=== PATIENT | male | born 1975 ===

== ENCOUNTER 2017-02-24 07:35 | Emergency (ER) | payer MEDICAID ==
--- NOTE | 2017-02-24 07:51 | ED PDOC ---
HPI: Abdomen Time Seen by Provider: 02/24/17 07:39 Chief Complaint (Nursing): Abdominal Pain Chief Complaint (Provider): Abdominal Pain History Per: Patient History/Exam Limitations: no limitations Onset/Duration Of Symptoms: Days (x1) Current Symptoms Are (Timing): Still Present Additional Complaint(s): Db Grimm is a 41 year old male with no significant past medical history , who presents to the ED complaining of left flank and LLQ pain with associated nausea since this morning. Patient denies vomiting, diarrhea, and urinary symptoms. PMD: Provider TBD Past Medical History Reviewed: Historical Data, Nursing Documentation, Vital Signs Vital Signs: Last Vital Signs Temp 97.1 F L 02/24/17 10:28 Pulse 72 02/24/17 10:28 Resp 16 02/24/17 10:28 BP 142/88 02/24/17 10:28 Pulse Ox 99 02/24/17 10:28 - Family History Family History: States: Unknown Family Hx - Home Medications Home Medications: Ambulatory Orders Medication Instructions Recorded Ciprofloxacin HCl [Cipro] 500 mg PO BID #20 tab 02/24/17 Tamsulosin [Flomax] 0.4 mg PO DAILY #5 cap 02/24/17 traMADol [Ultram] 50 mg PO Q8 #10 tab 02/24/17 - Allergies Allergies/Adverse Reactions: Allergies Allergy/AdvReac Type Severity Reaction Status Date / Time oxycodone [From Percocet] Allergy Mild ITCHING Verified 02/24/17 10:04 acetaminophen [From Percocet] Allergy ITCHING Verified 02/24/17 10:04 Review of Systems ROS Statement: Except As Marked, All Systems Reviewed And Found Negative Gastrointestinal: Positive for: Nausea, Abdominal Pain (LLQ, left flank). Negative for: Vomiting, Diarrhea Genitourinary Male: Negative for: Dysuria, Frequency, Incontinence Physical Exam - Reviewed Nursing Documentation Reviewed: Yes - Physical Exam Appears: Positive for: Non-toxic, No Acute Distress Head Exam: Positive for: ATRAUMATIC Skin: Positive for: Normal Color, Warm Eye Exam: Positive for: Normal appearance Gastrointestinal/Abdominal: Positive for: Normal Exam, Soft. Negative for: Tenderness Back: Positive for: Normal Inspection. Negative for: L CVA Tenderness, R CVA Tenderness Neurologic/Psych: Positive for: Alert, Oriented (x3) - Laboratory Results Result Diagrams: 02/24/17 10:01 02/24/17 10:01 Medical Decision Making Medical Decision Making: Time: 746 Initial Impression: Rule out kidney stones Plan: --CT Abd and pelvis w/o contrast --ED Urine dipstick --Toradol 30 mg IVP --Urine Culture --Reevaluation Time: 826 --Sodium Chloride 0.9% 1,000 ml IV --Ultram 50 mg PO --Reevaluation Time: 852 --Lidocaine 90 IV --Reevaluation Time: 899 --Morphine 2 mg IV --Reevaluation Time: 954 CT Abd and Pelvis FINDINGS: LOWER THORAX: Unremarkable. LIVER: Unremarkable. No gross lesion or ductal dilatation. GALLBLADDER AND BILE DUCTS: Unremarkable. PANCREAS: Unremarkable. No gross lesion or ductal dilatation. SPLEEN: Unremarkable. ADRENALS: Unremarkable. No mass. KIDNEYS AND URETERS: Obstructive mid left ureteral 4 millimeter calculus causing mild hydroureteronephrosis. Punctate nonobstructive bilateral renal calculi. No solid mass. VASCULATURE: Unremarkable. No aortic aneurysm. BOWEL: Unremarkable. No obstruction. No gross mural thickening. APPENDIX: Prominent, fluid-filled appendix, measuring up to 8 millimeter, without wall thickening or obvious periappendiceal inflammatory change. PERITONEUM: Small fat containing umbilical hernia. No free fluid. No free air. LYMPH NODES: Unremarkable. No enlarged lymph nodes. BLADDER: Unremarkable. REPRODUCTIVE: Unremarkable. BONES: No acute fracture. OTHER FINDINGS: None. IMPRESSION: Obstructive mid left ureteral 4 millimeter calculus causing mild hydroureteronephrosis. Prominent fluid-filled appendix, measuring up to 8 millimeter, without wall thickening or obvious periappendiceal inflammatory change. Prominent size may represent a normal variant. Acute appendicitis should be considered in the appropriate clinical setting. Clinical correlation is recommended. Scribe Attestation: Documented by Ralf Raymond acting as a scribe for Juan Knott MD. MD Haynes Attestation: All medical record entries made by the Ivy were at my direction and personally dictated by me. I have reviewed the chart and agree that the record accurately reflects my personal performance of the history, physical exam, medical decision making, and the department course for this patient. I have also personally directed, reviewed, and agree with the discharge instructions and disposition. Disposition - Clinical Impression Clinical Impression: Kidney stone - Patient ED Disposition Is Patient to be Admitted: No Counseled Patient/Family Regarding: Studies Performed, Diagnosis, Need For Followup, Rx Given - Disposition Referrals: Braydon Rocha MD [Staff Provider] - Disposition: Routine/Home Disposition Time: 10:45 Condition: GOOD Prescriptions: Ciprofloxacin HCl [Cipro] 500 mg PO BID #20 tab Tamsulosin [Flomax] 0.4 mg PO DAILY #5 cap traMADol [Ultram] 50 mg PO Q8 #10 tab Instructions: Kidney Stones (ED) Forms: [employer] (Tristanian)
[2017-02-24 08:05] VITALS: RESP 16
[2017-02-24] MEDS: Sodium Chloride 0.9% 1,000 ML IV STA (08:31)
[2017-02-24] MEDS ORDERED: SODIUM CHLORIDE 0.9% IV ONE (08:51)
[2017-02-24] MEDS ORDERED: LIDOCAINE IV ONE (08:51)
--- NOTE | 2017-02-24 09:57 | CT ---
PROCEDURE: CT Abdomen and Pelvis without intravenous contrast HISTORY: r/o kidney stone COMPARISON: None. TECHNIQUE: Contiguous images were obtained from the domes of the diaphragms to the upper thighs without the administration of intravenous contrast. Oral contrast was not administered. Radiation dose: Total exam DLP = 343.7 mGy-cm. This CT exam was performed using one or more of the following dose reduction techniques: Automated exposure control, adjustment of the mA and/or kV according to patient size, and/or use of iterative reconstruction technique. FINDINGS: LOWER THORAX: Unremarkable. LIVER: Unremarkable. No gross lesion or ductal dilatation. GALLBLADDER AND BILE DUCTS: Unremarkable. PANCREAS: Unremarkable. No gross lesion or ductal dilatation. SPLEEN: Unremarkable. ADRENALS: Unremarkable. No mass. KIDNEYS AND URETERS: Obstructive mid left ureteral 4 millimeter calculus causing mild hydroureteronephrosis. Punctate nonobstructive bilateral renal calculi. No solid mass. VASCULATURE: Unremarkable. No aortic aneurysm. BOWEL: Unremarkable. No obstruction. No gross mural thickening. APPENDIX: Prominent, fluid-filled appendix, measuring up to 8 millimeter, without wall thickening or obvious periappendiceal inflammatory change. PERITONEUM: Small fat containing umbilical hernia. No free fluid. No free air. LYMPH NODES: Unremarkable. No enlarged lymph nodes. BLADDER: Unremarkable. REPRODUCTIVE: Unremarkable. BONES: No acute fracture. OTHER FINDINGS: None. IMPRESSION: Obstructive mid left ureteral 4 millimeter calculus causing mild hydroureteronephrosis. Prominent fluid-filled appendix, measuring up to 8 millimeter, without wall thickening or obvious periappendiceal inflammatory change. Prominent size may represent a normal variant. Acute appendicitis should be considered in the appropriate clinical setting. Clinical correlation is recommended. Findings conveyed to Dr. Knott by Dr. Crowell at 9:54 a.m. on 02/24/2017.
[2017-02-24 10:04] LABS: BASO % 0.5 % (0.0-2.0); EOS # 0.2 K/uL (0.0-0.7); EOS % 2.3 % (0.0-4.0); HEMATOCRIT 42.8 % (35.0-51.0); LYMPH # 3.6 K/uL (1.0-4.3); LYMPH % 54.4 % (20.0-40.0); MEAN CELL VOLUME 88.4 fl (80.0-94.0); MEAN CORPUSCULAR HEMOGLOBIN 28.7 pg (27.0-31.0); MEAN CORPUSCULAR HGB CONC 32.4 g/dL (33.0-37.0); MEAN PLATELET VOLUME 9.6 fl (7.2-11.7); MONO # 0.6 K/uL (0.0-0.8); MONO % 8.6 % (0.0-10.0); NEUT # 2.3 K/uL (1.8-7.0); NEUT % 34.2 % (50.0-75.0); NRBC % 0.2 % (0.0-0.0); RED CELL DISTRIBUTION WIDTH 13.8 % (11.5-14.5); WHITE BLOOD COUNT 6.6 K/uL (4.8-10.8)
[2017-02-24 10:15] LABS: BILIRUBIN,TOTAL 0.5 mg/dl (0.2-1.3); CALCIUM 8.9 mg/dL (8.4-10.2); CARBON DIOXIDE 26 mmol/L (22-30); CHLORIDE 106 mmol/L (98-107); GFR AFRICAN-AMERICAN > 60; GLUCOSE,RANDOM 98 mg/dL (75-110); SODIUM 141 mmol/l (132-148)
[2017-02-24 10:21] LABS: ALB/GLOB RATIO 1.3 (1.0-2.1); ALKALINE PHOSPHATASE 89 U/L (38-126); ALT/SGPT 35 U/L (21-72); AST/SGOT 40 U/L (17-59); BLOOD UREA NITROGEN 7 mg/dl (9-20); POTASSIUM 4.6 MMOL/L (3.6-5.0)
[2017-02-24 10:31] VITALS: BP 142/88; PULSE 72; TEMP 97.1; O2SAT 99
== END 2017-02-24 10:33 | disposition home or self-care (01) ==
LOC: H.ER 07:35
DX: N13.2 Hydronephrosis with renal and ureteral calculous obstruction (principal)
CPT/HCPCS: 74176; 80053; 85025; 96374; 96375; 99282; J1885; J2270; J7040

== ENCOUNTER 2017-06-08 10:34 | Emergency (ER) | payer MEDICAID, OTHER ==
[2017-06-08 11:14] VITALS: BP 135/91; PULSE 65; RESP 18; TEMP 97.7; O2SAT 100
[2017-06-08 12:15] LABS: SQUAMOUS EPITHIAL < 1 /hpf (0-5); URINE BILIRUBIN NEGATIVE (NEGATIVE); URINE BLOOD SMALL (NEGATIVE); URINE CLARITY CLEAR (Clear); URINE COLOR STRAW (YELLOW); URINE GLUCOSE (UA) NEG (Normal); URINE LEUKOCYTE ESTERASE NEG Leu/uL (Negative); URINE PROTEIN NEGATIVE (NEGATIVE); URINE UROBILINOGEN 0.2-1.0 mg/dL (0.2-1.0)
--- NOTE | 2017-06-08 13:08 | US ---
HISTORY: L sided scrotal pain TECHNIQUE: Realtime sonography through the scrotum with color and doppler flow. COMPARISON: None Available. FINDINGS: RIGHT TESTICLE: Measures 2.2 x 3.8 x 4.8 cm. Normal echotexture and flow. RIGHT EPIDIDYMIS: Epididymal head measures 1.2 x 1.4 cm. Grossly unremarkable appearance with normal flow. Incidental finding(s): Tiny cyst 2 mm LEFT TESTICLE: Measures 2.4 x 5.2 x 4.6 cm. Normal echotexture and flow. LEFT EPIDIDYMIS: Epididymal head measures 1.2 x 0.9 x 1.1 cm. Grossly unremarkable appearance with normal flow. HYDROCELE: Small, uncomplicated right hydrocele. Small uncomplicated left hydrocele. VARICOCELE: None. OTHER FINDINGS: None. IMPRESSION: Negative study for epididymitis, orchitis or torsion. Additional benign and/or incidental findings described above.
[2017-06-08] MEDS ORDERED: cefTRIAXone (Rocephin) 250 mg Inj IM ONE (13:49)
[2017-06-08] MEDS ORDERED: cefTRIAXone (Rocephin) 250 mg Inj ONE (14:12)
--- NOTE | 2017-06-10 16:15 | ED PDOC ---
HPI: Male Pain Time Seen by Provider: 06/08/17 11:21 Chief Complaint (Nursing): Male Genitourinary History Per: Patient Additional Complaint(s): Pt states for the past 3 days he's had dysuria along with scrotal pain. States he is sexually active but only with 1 partner. States he does have unprotected sex with his partner. Last intercourse was 2 weeks ago. Denies fever, abdominal pain, trauma, penile discharge, rash, back pain, hematuria, frequency urgency. Past Medical History Reviewed: Historical Data, Nursing Documentation, Vital Signs Vital Signs: Last Vital Signs Temp 97.7 F 06/08/17 11:11 Pulse 65 06/08/17 11:11 Resp 18 06/08/17 11:11 BP 135/91 H 06/08/17 11:11 Pulse Ox 100 06/08/17 11:11 - Surgical History Surgical History: No Surg Hx - Family History Family History: States: No Known Family Hx - Home Medications Home Medications: Ambulatory Orders Medication Instructions Recorded Ciprofloxacin HCl [Cipro] 500 mg PO BID #20 tab 02/24/17 Tamsulosin [Flomax] 0.4 mg PO DAILY #5 cap 02/24/17 traMADol [Ultram] 50 mg PO Q8 #10 tab 02/24/17 Doxycycline Hyclate [Doryx] 100 mg PO BID #14 cap 06/08/17 - Allergies Allergies/Adverse Reactions: Allergies Allergy/AdvReac Type Severity Reaction Status Date / Time oxycodone [From Percocet] Allergy Mild ITCHING Verified 06/08/17 11:11 acetaminophen [From Percocet] Allergy ITCHING Verified 06/08/17 11:11 Review of Systems ROS Statement: Except As Marked, All Systems Reviewed And Found Negative Genitourinary Male: Positive for: Dysuria, Scrotal Pain Physical Exam - Physical Exam Appears: Positive for: Well, Non-toxic, No Acute Distress Skin: Positive for: Normal Color, Warm. Negative for: Rash Eye Exam: Positive for: Normal appearance Gastrointestinal/Abdominal: Positive for: Normal Exam, Soft. Negative for: Tenderness Male Genital Exam: Positive for: normal genitalia. Negative for: epididymal tenderness, lesions, scrotum tenderness (L), testicular tenderness (R), testicular tenderness (L), urethral discharge - ECG O2 Sat by Pulse Oximetry: 100 - Progress ED Course And Treament: Toradol 30mg IM, UA, GC/chlamydia cultures, scrotal US ordered. Rocephin 1gm IV, zithromax 1gm PO ordered. Advised to contact partner and inform her of pending dx. Disposition - Clinical Impression Clinical Impression: Urethritis - Patient ED Disposition Is Patient to be Admitted: No - Disposition Referrals: [facility] [place] [Outside] [facility] [Outside] Disposition: Routine/Home Disposition Time: 14:20 Condition: STABLE Additional Instructions: Return to ED immediately if symptoms worsen. Follow up with PMD for further evaluation. Prescriptions: Doxycycline Hyclate [Doryx] 100 mg PO BID #14 cap Instructions: Urethritis (DC) Forms: [employer] (Turkmen)
== END 2017-06-08 14:26 | disposition home or self-care (01) ==
LOC: H.ER 10:34
DX: N34.2 Other urethritis (principal); N50.82 Scrotal pain; Z88.5 Allergy status to narcotic agent
CPT/HCPCS: 81003; 87086; 87491; 87591; 93975; 96372; 99283; J0696; J1885